=== PATIENT | female | born 1965 | race Hispanic/Latino ===

== ENCOUNTER → 2018-02-14 | Day surgery (SDC) | payer BC ==
--- NOTE | 2018-02-09 12:57 | Diagnostic Imaging Report ---
EXAMINATION: CHEST 2 VIEWS COMPARISON: None FINDINGS: TUBES and LINES: None. LUNGS: Lungs are well inflated. Lungs are clear. There is no evidence of pneumonia or pulmonary edema. PLEURA: No pleural effusion or pneumothorax. HEART AND MEDIASTINUM: The cardiomediastinal silhouette is unremarkable. BONES AND SOFT TISSUES: No acute osseous lesion. Soft tissues are unremarkable. UPPER ABDOMEN: No free air under the diaphragm. IMPRESSION: No acute radiographic abnormality. Signed by: Dr. Isis Diaz MD on 02/09/2018 12:53 PM
[~2018-02-14] MED LIST: FENTANYL CITRATE/PF 100MCG/2 ML INJ ONE; MIDAZOLAM HCL 2 MG/2 ML VIAL ONE; MULTIVITAMINS1 EAC7 PO; PROPOFOL IV EMULSION 10 MG/ML 20 ML VIAL ONE; ULTRAM 50MG50 MG PO
--- OUTSIDE RECORDS SUMMARY | 2018-02-14 05:22 | XMS REPORT ---
Author Author [facility] Address Unknown Phone Unavailable Care Team Providers Care Chemical Laboratory Technician Name Role Phone Fabio SEALS PP Unavailable Radha JARAMILLO Unavailable Unavailable Problems This patient has no known problems. Allergies, Adverse Reactions, Alerts This patient has no known allergies or adverse reactions. Medications This patient has no known medications. Encounters Start Date/Time End Date/Time Encounter Type Admission Type Attending Clinicians Care Facility Care Department Encounter ID 2017-03-18 11:07:00 2017-03-18 11:07:00 Outpatient C [facility] MED [id number] Results Test Description Test Time Test Comments Text Results Atomic Results Result Comments CHEST 2 VIEWS 2018-02-09 12:52:00 [place] [id number] Patient Name: HELDER DOLL MR #: [id number] : 1965 Age/Sex: 52/F Req #: [id number] Adm Physician: Ordered by: DIEGO JARAMILLO MD Report #: [id number] Location: OR Room/Bed: Procedure: [id number] DX/CHEST 2 VIEWS Exam Date: 02/09/18 Exam Time: 1225 REPORT STATUS: Signed EXAMINATION: CHEST 2 VIEWS COMPARISON: None FINDINGS: TUBES and LINES: None. LUNGS: Lungs are well inflated. Lungs are clear. There is no evidence of pneumonia or pulmonary edema. PLEURA: No pleural effusion or pneumothorax. HEART AND MEDIASTINUM: The cardiomediastinal silhouette is unremarkable. BONES AND SOFT TISSUES: No acute osseous lesion. Soft tissues are unremarkable. UPPER ABDOMEN: No free air under the diaphragm. IMPRESSION: No acute radiographic abnormality. Signed by: Dr. Jaylene Salas MD on 02/09/2018 12:53 PM Dictated By: JAYLENE SALAS MD 1253 Transcribed By: DELBERT on 02/09/18 1253 COPY TO: DIEGO JARAMILLO MD [facility] MAMMO SCREENING ZAN W/CAD 2017-03-20 16:09:17 [facility] MAMMO SCREENING ZAN W/CADZ12.31: ENCNTR SCREEN MAMMOGRAM FOR MALIGNANT NEOPLASM OF BREAST.Dictation Location: [id number] Information: Screening mammogram. Patient reports bilateralsaline breast implants in 2000. She has a history of benign excisionalbiopsy of the left breast in 1998.Technique: Bilateral digital mammogram with computer assisted diagnosis. Bilateral CC and MLO views were obtained. Bilateral CC and MLO implantdisplaced views were obtained.Comparison: Prior mammograms dating back to 04/14/2012Findings: The breasts are heterogeneously dense, which may obscure small masses. Bilateral retropectoral breast implants identified. There are nosuspicious masses or microcalcifications.IMPRESSION: No mammographic evidence of malignancy. However, the breasts are dense,which may obscure small masses and screening bilateral breast ultrasoundshould be considered.ACR BI-RADS CATEGORY: 2-BENIGN RECOMMENDATION: CONSIDER SCREENING BILATERAL BREAST ULTRASOUND. FOLLOWUP MAMMOGRAM IN 1 YEAR.
[2018-02-14 10:45] VITALS: BP 121/74
== END | disposition home or self-care (01) ==
LOC: OR 05:19
PROVIDERS: ATTEND Surgery
DX: K59.00 Constipation, unspecified (principal); Z01.810 Encounter for preprocedural cardiovascular examination; Z01.818 Encounter for other preprocedural examination
CPT/HCPCS: 45378; 71046; 93005; J2250; J2704